=== PATIENT | female | born 1985 | race Caucasian/White ===

== ENCOUNTER 2017-10-16 02:09 | Emergency (ER) | payer OTHER ==
[2017-10-16 03:24] LABS: URINE BLOOD (Dip) POC 2+ (NEGATIVE); URINE GLUCOSE (Dip) POC Negative (NEGATIVE); URINE KETONES (Dip) POC Trace (NEGATIVE); URINE LEUKOCYTE EST (Dip) POC Negative (NEGATIVE); URINE NITRITE (Dip) POC Negative (NEGATIVE); URINE TOTAL PROTEIN POC Negative (NEGATIVE)
[2017-10-16 03:33] LABS: ADD MAN DIFF? NO
[2017-10-16] MEDS: LIDOCAINE/MYLANTA 40 ML BTL PO (03:33)
[2017-10-16] MEDS: SOD CHLORIDE 0.9% 1,000 ML IV (03:34)
[2017-10-16] MEDS: ONDANSETRON 4 MG INJ IV (03:34)
[2017-10-16] MEDS: morphine 4 MG/ML VIAL IV (03:35)
[2017-10-16 03:49] LABS: ADD UMIC YES; UR ASCORBIC ACID 40 mg/dL (NEGATIVE); UR BACTERIA MANY /HPF (NONE SEEN); UR BILIRUBIN (Dip) NEGATIVE (NEGATIVE); UR BLOOD (Dip) 2+ mg/dL (NEGATIVE); UR CLARITY CLEAR (CLEAR); UR COLOR YELLOW (YELLOW); UR GLUCOSE (Dip) NEGATIVE (NEGATIVE); UR KETONES (Dip) NEGATIVE (NEGATIVE); UR LEUKOCYTE ESTERASE (Dip) NEGATIVE Leu/ul (NEGATIVE); UR NITRITE (Dip) NEGATIVE (NEGATIVE); UR RBC 23 /HPF (0-5); UR SPECIFIC GRAVITY (Dip) 1.018 (1.003-1.030); UR SQUAMOUS EPITHELIAL CELL FEW /HPF (FEW); UR TOTAL PROTEIN (Dip) NEGATIVE (NEGATIVE); UR UROBILINOGEN (Dip) NEGATIVE (NEGATIVE); UR WBC 6 /HPF (0-5)
[2017-10-16 03:56] LABS: WHITE BLOOD COUNT 8.7 10^3/ul (4.8-10.8)
[2017-10-16 03:56] LABS: BASOPHILS % 0.5 % (0.0-2.0); EOSINOPHILS # 0.1 10^3/ul (0.0-0.5); EOSINOPHILS % 0.7 % (0.0-7.0); HEMATOCRIT 39.8 % (37.0-47.0); HEMOGLOBIN 13.1 g/dl (12.0-16.0); INR 1.02; LYMPHOCYTES # 1.9 10^3/ul (0.8-2.9); LYMPHOCYTES % 21.5 % (15.0-51.0); MEAN CORPUSCULAR HEMOGLOBIN 28.5 pg (29.0-33.0); MEAN CORPUSCULAR HGB CONC 32.9 g/dl (32.0-37.0); MEAN CORPUSCULAR VOLUME 86.5 fl (82.0-101.0); MEAN PLATELET VOLUME 10.5 fl (7.4-10.4); MONOCYTE # 0.4 10^3/ul (0.3-0.9); MONOCYTES % 4.6 % (0.0-11.0); NEUTROPHIL # 6.3 10^3/ul (1.6-7.5); NEUTROPHILS % 72.1 % (39.0-77.0); PARTIAL THROMBOPLASTIN TIME 28.9 Sec (25.0-35.0); PLATELET COUNT 304 10^3/UL (140-415); PROTIME 13.5 Sec (11.9-14.9); PT RATIO 1.1; RED CELL DISTRIBUTION WIDTH 13.2 % (11.5-14.5)
[2017-10-16 04:05] LABS: ALANINE AMINOTRANSFERASE 30 IU/L (13-69); ALBUMIN 4.5 g/dl (3.3-4.9); ALBUMIN/GLOBULIN RATIO 1.25; ALKALINE PHOSPHATASE 75 IU/L (42-121); ANION GAP 19 (8-16); ASPARTATE AMINO TRANSFERASE 22 IU/L (15-46); BLOOD UREA NITROGEN 13 mg/dl (7-20); CALCIUM 9.1 mg/dl (8.4-10.2); CARBON DIOXIDE 24 mmol/L (21-31); CHLORIDE 106 mmol/L (97-110); CREATININE 0.78 mg/dl (0.44-1.00); GLUCOSE 121 mg/dl (70-220); POTASSIUM 3.7 mmol/L (3.5-5.1); SODIUM 145 mmol/L (135-144); TOTAL PROTEIN 8.1 g/dl (6.1-8.1)
[2017-10-16] MEDS: SOD CHLORIDE 0.9% 500 ML IV (04:07)
[2017-10-16] MEDS: ACETAMINOPHEN 500 MG TAB PO (04:46)
[2017-10-16 04:49] LABS: HEMATOCRIT 37.9 % (37.0-47.0); HEMOGLOBIN 12.1 g/dl (12.0-16.0)
[2017-10-16] MEDS: CEFTRIAXONE 1 GM/50 ML (PMX) 50 ML IVPB (06:40)
== END 2017-10-16 07:39 | disposition home or self-care (01) ==
LOC: E/R 02:09
DX: N39.0 Urinary tract infection, site not specified (principal); K62.5 Hemorrhage of anus and rectum; I10 Essential (primary) hypertension
CPT/HCPCS: 36415; 80053; 81001; 81003; 81025; 85014; 85018; 85025; 85610; 85730; 86850; 86900; 86901; 93005; 96374; 96375; 99284-25

== ENCOUNTER 2018-04-28 22:36 | Emergency (ER) | payer OTHER ==
[2018-04-29] MEDS: ACETAMINOPHEN 325 MG TAB PO (00:17)
[2018-04-29] MEDS: LIDOCAINE 4% CR TOP (00:29)
[2018-04-29] MEDS: LIDOCAINE 1% (MDV) 20 ML INJ SC (00:40)
[2018-04-29] MEDS: LIDOCAINE 1% (MPF) 5 ML VIAL SC (00:45)
== END 2018-04-29 01:34 | disposition home or self-care (01) ==
LOC: FTE 22:36
DX: K64.5 Perianal venous thrombosis (principal); I10 Essential (primary) hypertension
CPT/HCPCS: 99284; Z7502

== ENCOUNTER 2018-05-04 13:40 | Emergency (ER) | payer OTHER ==
[2018-05-04] MEDS: LIDOCAINE 4% CR TOP (14:38)
[2018-05-04] MEDS: ACETAMINOPHEN 325 MG TAB PO (14:38)
== END 2018-05-04 14:54 | disposition home or self-care (01) ==
LOC: FTE 13:40
DX: K64.4 Residual hemorrhoidal skin tags (principal); I10 Essential (primary) hypertension
CPT/HCPCS: 99284; Z7502